=== PATIENT | male | born 1990 | race African-American/Black ===

== ENCOUNTER 2018-02-15 20:45 | Emergency (ER) | payer OTHER ==
[2018-02-15 21:13] VITALS: BP 145/84; PULSE 114; TEMP 99.2; BMI 27.2
--- NOTE | 2018-02-15 21:13 | PDOC ---
Rapid Medical Evaluation Time Seen by Provider: 02/15/18 21:09 Medical Evaluation: Allergies Allergy/AdvReac Type Severity Reaction Status Date / Time No Known Allergies Allergy Verified 02/15/18 21:10 02/15/18 21:11 I have performed a brief in-person evaluation of this patient. The patient presents with a chief complaint of epigastric pain x 2 days Reports having constipation and bloating feeling took laxative now with diarrhea and discomfort in mid epigastrum area Pertinent physical exam finding are cynthia lungs clear bilaterally heart [id number] abd: soft, non tender +Bowel sounds I have ordered the following: labs ordered, The patient will proceed to the ED for further evaluation.
--- NOTE | 2018-02-15 23:49 | PDOC ---
History of Present Illness - General History Source: Patient Exam Limitations: No Limitations - History of Present Illness Initial Comments: 02/16/18 00:07 The patient is a 27 year old female with no significant PMH who presents to the emergency department with diffuse abdominal pain beginning approximately over the past week. He describes his abdominal pain as diffuse with particular emphasis on the epigastric region. He reports starting a lemon and water cleanse approximately 2 weeks ago but notes eating heavy food such as a lot of meat this past week which he believes has made him feel gassy and bloated. He reports diarrhea after taking a Laxative within the past 2 days. The patient denies fever, chills, vomit and constipation. The patient denies chest pain, shortness of breath, headache and dizziness. Denies dysuria, frequency, urgency and hematuria. Allergies: NKA Past surgical history: None reported. Social history: No reported cigarette, alcohol, or drug use. PCP: None reported. <Baldemar Lantigua - Last Filed: 02/16/18 00:07> - General History Source: Patient <Akash Almonte - Last Filed: 02/16/18 02:15> - General Chief Complaint: Pain, Acute Stated Complaint: ABD PAIN Time Seen by Provider: 02/15/18 21:09 Past History <Baldemar Lantigua - Last Filed: 02/16/18 00:07> - Past Medical History COPD: No - Suicide/Smoking/Psychosocial Hx Smoking History: Never smoked Have you smoked in the past 12 months: No Hx Alcohol Use: No <Akash Almonte - Last Filed: 02/16/18 02:15> - Past Medical History Allergies/Adverse Reactions: Allergies Allergy/AdvReac Type Severity Reaction Status Date / Time No Known Allergies Allergy Verified 02/15/18 21:10 Home Medications: Ambulatory Orders NK [No Known Home Medication] 02/15/18 Review of Systems - Review of Systems Able to Perform ROS?: Yes Comments:: 02/16/18 00:07 CONSTITUTIONAL: Absent: fever, chills, diaphoresis, generalized weakness, malaise, loss of appetite HEENT: Absent: rhinorrhea, nasal congestion, throat pain, throat swelling, difficulty swallowing, mouth swelling, ear pain, eye pain, visual Changes CARDIOVASCULAR: Absent: chest pain, syncope, palpitations, irregular heart rate, lightheadedness , peripheral edema RESPIRATORY: Absent: cough, shortness of breath, dyspnea with exertion, orthopnea, wheezing, stridor, hemoptysis GASTROINTESTINAL: (+) Diffuse abdominal pain with emphasis on epigastric region. (+) Gassy. (+) Bloated. Absent: abdominal distension, vomiting, diarrhea, constipation, melena, hematochezia GENITOURINARY: Absent: dysuria, frequency, urgency, hesitancy, hematuria, flank pain, genital pain MUSCULOSKELETAL: Absent: myalgia, arthralgia, joint swelling SKIN: Absent: rash, itching, pallor HEMATOLOGIC/IMMUNOLOGIC: Absent: easy bleeding, easy bruising, lymphadenopathy, frequent infections ENDOCRINE: Absent: unexplained weight gain, unexplained weight loss, heat intolerance, cold intolerance NEUROLOGIC: Absent: headache, focal weakness or paresthesias, dizziness, unsteady gait, seizure, mental status changes, bladder or bowel incontinence PSYCHIATRIC: Absent: anxiety, depression, suicidal or homicidal ideation, hallucinations. <Baldemar Lantigua - Last Filed: 02/16/18 00:07> *Physical Exam - Vital Signs Last Vital Signs Temp Pulse Resp BP Pulse Ox 99.2 F 114 H 18 145/84 97 02/15/18 21:12 02/15/18 21:12 02/15/18 21:12 02/15/18 21:12 02/15/18 21:12 - Physical Exam Comments: 02/16/18 00:07 GENERAL: Well developed, well nourished. Awake and alert. No acute distress. HEENT: Normocephalic, atraumatic. PERRLA, EOMI. No conjunctival pallor. Sclera are non- icteric. Moist mucous membranes. Oropharynx is clear. NECK: Supple. Full ROM. No JVD. Carotid pulses 2+ and symmetric, without bruits. No thyromegaly. No lymphadenopathy. CARDIOVASCULAR: Regular rate and rhythm. No murmurs, rubs, or gallops. Distal pulses are 2+ and symmetric. PULMONARY: No evidence of respiratory distress. Lungs clear to auscultation bilaterally. No wheezing, rales or rhonchi. ABDOMINAL: Soft. Non-tender. Non-distended. No rebound or guarding. No organomegaly. Normoactive bowel sounds. MUSCULOSKELETAL Normal range of motion at all joints. No bony deformities or tenderness. No CVA tenderness. EXTREMITIES: No cyanosis. No clubbing. No edema. No calf tenderness. SKIN: Warm and dry. Normal capillary refill. No rashes. No jaundice. NEUROLOGICAL: Alert, awake, appropriate. Cranial nerves 2-12 intact. No deficits to light touch and temperature in face, upper extremities and lower extremities. No motor deficits in the in face, upper extremities and lower extremities. Normoreflexic in the upper and lower extremities. Normal speech. Toes are downgoing bilaterally. Gait is normal without ataxia. PSYCHIATRIC: Cooperative. Good eye contact. Appropriate mood and affect. <Baldemar Lantigua - Last Filed: 02/16/18 00:07> - Vital Signs Last Vital Signs Temp Pulse Resp BP Pulse Ox 99.2 F 114 H 18 145/84 97 02/15/18 21:12 02/15/18 21:12 02/15/18 21:12 02/15/18 21:12 02/15/18 21:12 <Akash Almonte - Last Filed: 02/16/18 02:15> ED Treatment Course - LABORATORY CBC & Chemistry Diagram: 02/16/18 00:15 02/16/18 00:15 <Akash Almonte - Last Filed: 02/16/18 02:15> Medical Decision Making - Medical Decision Making 02/16/18 02:14 Dr. Almonte: The scribe's documentation has been prepared under my direction and personally reviewed by me in its entirery. I confirm that the note above accurately reflects all work, treatment, procedures, and medical decision making performed by me. Labs stable..Abd xray shows no SBO. Pt to follow up with GI as needed and suggested to eat less starchy foods. <Akash Almonte - Last Filed: 02/16/18 02:15> *DC/Admit/Observation/Transfer - Attestations Scribe Attestion: 02/16/18 00:07 Documentation prepared by Baldemar Lantigua, acting as medical aide for Akash Almonte DO. <Baldemar Lantigua - Last Filed: 02/16/18 00:07> - Discharge Dispostion Admit: No <Akash Almonte - Last Filed: 02/16/18 02:15> Diagnosis at time of Disposition: Constipation - Discharge Dispostion Disposition: HOME Condition at time of disposition: Stable - Referrals Referrals: Lisandro Moses MD [Staff Physician] - - Patient Instructions Printed Discharge Instructions: DI for Constipation, Increased Dietary Fiber May Improve Constipation Conditions With Pelvic Umer
[2018-02-16 00:30] LABS: BASO % 0.8 % (0-2.0); HEMATOCRIT 43.1 % (35.4-49); HEMOGLOBIN 14.9 GM/dL (11.7-16.9); LYMPH % 32.1 % (8-40); MCHC 34.6 g/dl (32.0-35.9); MEAN CELL VOLUME 86.6 fl (80-96); MEAN PLT VOLUME 9.5 fl (7.5-11.1); MONO % 8.9 % (3.8-10.2); NEUT % 57.2 % (42.8-82.8); PLATELET COUNT 226 K/MM3 (134-434); RBC 4.98 M/mm3 (4.00-5.60); RDW 13.8 % (11.9-15.9); WHITE BLOOD COUNT 8.6 K/mm3 (4.0-10.0)
[2018-02-16 01:34] LABS: ALBUMIN 3.7 g/dl (3.4-5.0); ANION GAP 7 (8-16); BILIRUBIN,TOTAL 0.3 mg/dL (0.2-1.0); BLOOD UREA NITROGEN 11 mg/dL (7-18); CHLORIDE 104 mmol/L (98-107); CO2 27 mmol/L (21-32); CREATININE 0.9 mg/dL (0.7-1.3); GLUCOSE,RANDOM 81 mg/dL (74-106); LIPASE 99 U/L (73-393); MAGNESIUM 2.3 mg/dL (1.8-2.4); SGOT/AST 11 U/L (15-37); SGPT/ALT 22 U/L (12-78); SODIUM 138 mmol/L (136-145); TOT PROT 7.8 g/dl (6.4-8.2)
[2018-02-16 02:02] LABS: ALK PHOS 82 U/L (45-117)
== END 2018-02-16 02:53 | disposition home or self-care (01) ==
LOC: JER 20:45
DX: K59.00 Constipation, unspecified (principal)
CPT/HCPCS: 36415; 74019-TC-FY; 80053; 83690; 83735; 85025; 99282-25